=== PATIENT | male | born 2000 | race Caucasian/White ===

== ENCOUNTER 2021-11-16 05:38 | Emergency (ER) | payer SELFPAY ==
[~2021-11-16] VITALS: Ht 165.1 cm; Wt 59.0 kg
[2021-11-16 05:38] VITALS: BP 132/74
--- NOTE | 2021-11-16 05:38 | NUR ---
PT BIB [facility], PREBOOK. TAKEN TO [facility]
--- NOTE | 2021-11-16 05:40 | NUR ---
Patient discharged in [facility] custody with v/s stable. verbal after care instructions given and explained. Patient verbalized understanding. Ambulatory with steady gait. All questions addressed prior to discharge.
[2021-11-16 05:45] VITALS: BP 132/74
== END 2021-11-16 05:40 ==
LOC: MED 05:38
DX: Z02.89 Encounter for other administrative examinations (principal); F10.129 Alcohol abuse with intoxication, unspecified; V89.2XXA Person injured in unspecified motor-vehicle accident, traffic, initial encounter; Y93.89 Activity, other specified; Y92.410 Unspecified street and highway as the place of occurrence of the external cause; Y99.8 Other external cause status
CPT/HCPCS: 99283